=== PATIENT | male | born 2000 | race Two or more races ===

== ENCOUNTER 2020-06-09 23:24 | Emergency (ER) | payer OTHER ==
[~2020-06-09] VITALS: Ht 175.3 cm; Wt 69.0 kg
[2020-06-09] MEDS ORDERED: FAMOTIDINE 20 MG TABLET ONE (23:49)
[2020-06-09] MEDS ORDERED: EPINEPHRINE 1 MG/ML, 1ML ONE (23:49)
[2020-06-10] MEDS ORDERED: EPINEPHRINE 1 MG/ML, 1ML IM ONE
[2020-06-10] MEDS ORDERED: FAMOTIDINE 20 MG TABLET PO ONE
[2020-06-10 00:42] VITALS: BP 131/73
== END 2020-06-10 00:44 | disposition home or self-care (01) ==
LOC: ED 23:55
DX: L50.9 Urticaria, unspecified (principal)
CPT/HCPCS: 96372; 99283; J0171; J7512

== ENCOUNTER 2020-06-10 22:04 | Emergency (ER) | payer OTHER ==
[~2020-06-10] VITALS: Ht 175.3 cm; Wt 71.2 kg
[2020-06-10] MEDS ORDERED: LORazepam 2 MG/ML, 1ML ONE (22:58)
[2020-06-10] MEDS ORDERED: ONDANSETRON 2MG/ML, 2ML IVPush ONE (23:00)
[2020-06-10] MEDS ORDERED: SODIUM CHLORIDE 0.9% 1,000ML IVBOLUS ONE (23:00)
[2020-06-10] MEDS ORDERED: LORazepam 2 MG/ML, 1ML IVPush ONE (23:00)
[2020-06-10] MEDS ORDERED: SODIUM CHLORIDE FLUSH 10ML SYR IVF ONE (23:00)
[2020-06-10 23:19] LABS: ALANINE AMINOTRANSFERASE 21 U/L (12-78); ALBUMIN 4.2 g/dL (3.4-5.0); ANION GAP 6 mmol/L (5-15); CALCIUM 9.3 mg/dL (8.5-10.1); CHLORIDE 107 mmol/L (98-107); CREATININE 0.97 mg/dL (0.7-1.3)
[2020-06-10 23:29] LABS: ALKALINE PHOSPHATASE 83 U/L (45-117); BILIRUBIN,TOTAL 0.5 mg/dL (0.2-1.0); T4 (THYROXINE) 7.2 mcg/dL (4.5-12.1); TOTAL PROTEIN 7.8 g/dL (6.4-8.2)
[2020-06-10 23:33] LABS: BASOPHILS % (AUTO) 0 % (0-1); EOSINOPHILS % (AUTO) 0 % (1-7); LYMPHOCYTES % (AUTO) 20 % (22-44); MEAN CORPUSCULAR HEMOGLOBIN 30.8 pg (27.5-34.5); MEAN CORPUSCULAR HGB CONC 33.8 g/dL (33.2-36.2); MEAN PLATELET VOLUME 7.7 fL (7.4-10.4); MONOCYTES % (AUTO) 6 % (2-9); NEUTROPHILS % (AUTO) 74 % (42-75); PLATELET COUNT 261 x10^3/uL (130-400); RED CELL DISTRIBUTION WIDTH 12.8 % (9.4-14.8)
[2020-06-10 23:34] LABS: MD NO
--- NOTE | 2020-06-10 23:35 | NUR ---
PT LAYING IN BED, BEDRAILS UP, CALL LIGHT IN REACH. LIGHTS OFF TO PROMOTE REST. ALL NEEDS MET AT THIS TIME.
[2020-06-11 00:22] VITALS: BP 124/59
== END 2020-06-11 00:25 | disposition home or self-care (01) ==
LOC: ED 06-11 00:13
DX: R00.2 Palpitations (principal); F12.122 Cannabis abuse with intoxication with perceptual disturbance; R00.0 Tachycardia, unspecified; F41.9 Anxiety disorder, unspecified
CPT/HCPCS: 36415; 80053; 83735; 84436; 84443; 85025; 93005; 96361; 96374; 99284; J2060; J7030

== ENCOUNTER 2020-09-12 22:21 | Emergency (ER) | payer MEDICAID ==
[~2020-09-12] VITALS: Ht 175.3 cm; Wt 68.7 kg
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
[2020-09-12 23:27] LABS: ALANINE AMINOTRANSFERASE 23 U/L (12-78); ANION GAP 6 mmol/L (5-15); CALCIUM 8.8 mg/dL (8.5-10.1); CHLORIDE 108 mmol/L (98-107); CREATININE 0.91 mg/dL (0.7-1.3)
[2020-09-12 23:29] LABS: ALKALINE PHOSPHATASE 89 U/L (45-117); BILIRUBIN,TOTAL 0.4 mg/dL (0.2-1.0); TOTAL PROTEIN 7.2 g/dL (6.4-8.2)
[2020-09-12 23:34] LABS: MEAN CORPUSCULAR HGB CONC 34.4 g/dL (33.2-36.2); MEAN PLATELET VOLUME 7.1 fL (7.4-10.4); PLATELET COUNT 226 x10^3/uL (130-400); RED BLOOD COUNT 4.66 x10^6/uL (4.38-5.82); RED CELL DISTRIBUTION WIDTH 12.7 % (9.4-14.8)
--- NOTE | 2020-09-12 23:35 | NUR ---
pt resting on gurney, nad, no change in condition. bed in lowest, rails engaged, call light on lap, wctm. waiting for labs results.
[2020-09-13 00:11] LABS: MD YES
[2020-09-13 00:14] LABS: <PLATELET ESTIMATE> ADEQUATE; <RBC MORPHOLOGY> NORMAL; BAND#(MANUAL) 0.07 x10^3/uL; BANDS%(MANUAL) 1 % (0-7); EOS#(MANUAL) 0.07 x10^3/uL (0.0-0.8); EOS% (MANUAL) 1 % (1-7); LYMPH#(MANUAL) 3.83 x10^3/uL (1-6.1); LYMPHS% (MANUAL) 54 % (22-44); MONOS#(MANUAL) 0.21 x10^3/uL (0.3-2.7); MONOS% (MANUAL) 3 % (2-9); REACTIVE LYMPHS # (MANUAL) 0.57 x10^3/uL (0-0); REACTIVE LYMPHS % (MANUAL) 8 % (0-0); SEG#(MANUAL) 2.34 x10^3/uL (1.8-8); SEGS% (MANUAL) 33 % (42-75); SMALL PLATELETS 1+
[2020-09-13 00:18] VITALS: BP 127/63
--- NOTE | 2020-09-13 00:23 | NUR ---
Patient given discharge instructions and they have confirmed that they understand the instructions. Patient ambulatory with steady gait. NAD, DENIES ADDITIONAL QUESTIONS OR NEEDS AT THIS TIME. NO PERSONAL BELONGINGS LEFT IN ROOM AFTER DC
== END 2020-09-13 00:47 | disposition home or self-care (01) ==
LOC: ED 23:00
DX: R94.31 Abnormal electrocardiogram [ECG] [EKG] (principal); R53.1 Weakness; R42 Dizziness and giddiness
CPT/HCPCS: 36415; 80053; 82375; 85025; 93005; 99284